=== PATIENT | male | born 1975 | race Caucasian/White ===

== ENCOUNTER 2016-10-30 10:08 | Day surgery (SDC) | payer OTHER ==
[2016-10-24 11:50] VITALS: BMI 27.6
[~2016-10-30 10:08] MED LIST: ALPRAZolam 0.25 MG TAB PO PRN; ALPRAZolam 0.5 MG TAB PO PRN; ASPIRIN 325 MG TAB PO STA; ATORVASTATIN 80 MG TAB PO STA; NITROGLYCERIN SL TABS 0.4 MG TAB SUBLINGUAL PRN; SODIUM CHLORIDE 0.9% 1,000 ML in EMPTY BAG 1 BAG IV ONE
[2016-10-30 10:30] VITALS: RESP 16; TEMP 98.7
[2016-10-30] MEDS ORDERED: LIDOCAINE 2% INJ 20 MG/ML (20 ML MDV) ONE (11:54)
[2016-10-30] MEDS ORDERED: HEPARIN SODIUM 1,000 UN/ML (10ML VL) ONE (11:55)
[2016-10-30] MEDS ORDERED: VERAPAMIL 2.5 MG/ML 2 ML AMP ONE (11:55)
[2016-10-30] MEDS ORDERED: MIDAZOLAM 2 MG/2 ML VIAL ONE (11:55)
[2016-10-30] MEDS ORDERED: SODIUM CHLORIDE 0.9% 1,000 ML IV ONE (12:03)
[2016-10-30] MEDS: MIDAZOLAM 2 MG/2 ML VIAL IVP ONE ×2 (12:08→12:51)
[2016-10-30] MEDS ORDERED: LIDOCAINE 2% INJ 20 MG/ML SQ ONE (12:25)
[2016-10-30] MEDS: VERAPAMIL SYRINGE (5 MG/10 ML) INTRAARTER ONE ×2 (12:26→12:56)
[2016-10-30] MEDS ORDERED: HEPARIN SODIUM 1,000 UN/ML (10ML VL) IV ONE (12:27)
[2016-10-30] MEDS ORDERED: IOHEXOL 350 MG/ML 100 ML BOTTLE INJ ONE (12:57)
[2016-10-30] MEDS ORDERED: RX INFO: IV CONTRAST WAS GIVEN 1 EACH MISC MISCELLANE PRN (13:00)
[2016-10-30] MEDS ORDERED: SODIUM CHLORIDE 0.9% 1,000 ML IV SCH (13:00)
[2016-10-30 16:33] VITALS: BP 126/75; PULSE 56
--- NOTE | 2016-10-30 21:23 | CC ---
CARDIAC CATHETERIZATION REPORT DATE OF PROCEDURE: 10/30/2016 PERFORMING PHYSICIAN: Tobias Osullivan M.D., refrigeration brazer/solderer PROCEDURES PERFORMED: 1. Selective right and left coronary angiogram. 2. Left heart catheterization. INDICATION: This is a pleasant 41-year-old gentleman who is known to have hypertension, dyslipidemia, and family history of CAD. He was experiencing chest discomfort and underwent an exercise treadmill stress test, the results of which were abnormal. APPROACH: Right radial artery. COMPLICATION: None. LEVEL OF SEDATION: Moderate with sedation length of 30 minutes. PROCEDURE DESCRIPTION: After obtaining informed consent, the patient was brought to the cardiac petroleum laboratory technician. The right radial artery was cannulated using micropuncture technique, and the micropuncture wire passed easily. Then I placed a 6 [place] sheath in the right radial artery. Subsequently I gave the patient 2 mg of verapamil IA and 10,000 units of heparin IV. After that, I did selective right and left coronary angiogram using JR4 and JL3.5 catheters. I did left heart catheterization as well, without LV gram, using the JR4 catheter. The procedure was completed without any complication. SELECTIVE CORONARY ANGIOGRAM: 1. The right coronary artery is a large-caliber vessel. It is a dominant vessel. It is angiographically normal. 2. The left main is angiographically normal. It bifurcates into left circumflex, ramus intermedius, and left anterior descending artery. 3. Left circumflex is a large-caliber vessel. It is a nondominant vessel. It is angiographically normal. 4. The ramus intermedius is angiographically normal. 5. The proximal left anterior descending artery is angiographically normal as well and gives rise to a diagonal branch which appeared to be angiographically normal. The mid LAD and distal LAD are angiographically normal. HEMODYNAMICS: The left ventricular end-diastolic pressure was 12 to 16 mmHg. No gradient was identified across the aortic valve. CONCLUSION: 1. Normal coronary angiogram. 2. Normal left ventricular end-diastolic pressure. POST-PROCEDURE MANAGEMENT: 1. Maximize medical treatment. 2. Follow up with the patient. MMODL / IJN: [id number] /
== END 2016-10-30 18:08 | disposition home or self-care (01) ==
LOC: CATHCVL 10:08 → 3OBS 12:55 → CATHCVL 18:08
PROVIDERS: ATTEND Internal Medicine Interventional Cardiology
DX: R94.39 Abnormal result of other cardiovascular function study (principal); I10 Essential (primary) hypertension; E78.5 Hyperlipidemia, unspecified; Z82.49 Family history of ischemic heart disease and other diseases of the circulatory system; Z88.0 Allergy status to penicillin
CPT/HCPCS: 93458; 99152; 99153; C1887; C1769; C1894; J2001; J2250; Q9967; J1644

== ENCOUNTER → 2023-05-01 | Outpatient (CLI) | payer BC ==
--- NOTE | 2023-05-01 13:27 | CT ---
Exam: CT Chest without contrast. Date: 05/01/2023. Comparison: None History: Shortness of breath and cough. Technique: CT examination of the chest was performed without contrast. Coronal and sagittal reformats were performed. CT dose lowering techniques were used, to include: automated exposure control, adjus tment for patient size, and/or use of iterative reconstruction. Prone and supine images were performe d as well as inspiration and expiratory images per high-resolution protocol. FINDINGS: Mediastinum and [place]: There is no axillary, mediastinal or hilar lymphadenopathy. Pleural and Pericardial spaces: There are no pleural or pericardial effusions. Upper Abdomen: The visualized upper abdomen is unremarkable. Cardiovascular: The thoracic aorta is normal in size. There is mild coronary calcium within the left anterior descending. Lung Parenchyma and Airways: The lungs are clear. Bones: No fracture or aggressive osseous lesion. IMPRESSION: 1. No acute abnormality in the chest. 2. No evidence of interstitial lung disease. 3. Mild coronary artery calcification.
== END | disposition home or self-care (01) ==
LOC: RADCTMAIN 12:07
PROVIDERS: ATTEND Internal Medicine Critical Care Medicine
DX: I25.10 Atherosclerotic heart disease of native coronary artery without angina pectoris (principal); J84.9 Interstitial pulmonary disease, unspecified
CPT/HCPCS: 71250